=== PATIENT | female | born 1985 | race Caucasian/White ===

== ENCOUNTER 2018-06-17 17:50 | Emergency (ER) | payer OTHER ==
[~2018-06-17] VITALS: Ht 177.8 cm; Wt 62.6 kg
[2018-06-17 18:11] VITALS: BP 113/65
[2018-06-17] MEDS ORDERED: DEMEROL ONE (18:11)
[2018-06-17] MEDS ORDERED: DEMEROL IM STA (18:11)
--- NOTE | 2018-06-17 18:21 | ER.PDOC ---
General Chief Complaint: Extremities Stated Complaint: WRIST INJURY Time seen by MD: 18:10 Source: patient Exam Limitations: no limitations History of Present Illness Initial Comments Pt suffered an injury on left wrist, where the wrist went backward Occurred: just prior to arrival Where: park Severity: mild Context: direct blow Location of Injury: (L) wrist Modifying Factors: pain on movement Past Medical History LMP (females 10-50): NOVEMBER 2017 DUE TO IUD Social History Smoking: non-smoker Alcohol Use: occassionally Drug Use: none Review of Systems Constitutional: no symptoms reported EENTM: no symptoms reported Respiratory: no symptoms reported Cardiovascular: no symptoms reported Gastrointestinal: no symptoms reported Genitourinary: no symptoms reported Musculoskeletal: see HPI Skin: no symptoms reported Psychiatric/Neurological: no symptoms reported Physical Exam General Appearance: Alert, No Apparent Distress Hand: nml inspection, non-tender, no evidence FB Wrist: tenderness (left wrist), swelling (left wrist), limited ROM by pain, deformity Neuro: sensation nml, motor nml Vascular: no vascular compromise Tendons: tendon function nml Forearm/Elbow/Arm: uninjured above wrist Skin: warm/dry Head/ENT: nml inspection, pharynx nml Neck/Back: nml inspection, non-tender Resp/CVS: no resp distress, lungs clear, heart sounds nml, reg. rate & rhythm Abdomen: non-tender, no organomegaly Results/Orders Results/Orders Administered Medications Medications (Trade) Dose Ordered Sig/Kenny Route PRN Reason Start Time Stop Time Status Last Admin Dose Admin Meperidine HCl (Demerol) 50 mg STAT STAT IM 06/17/18 18:11 06/17/18 18:12 DC 06/17/18 18:16 Departure Time of Disposition: 18:50 Disposition: 01 HOME, SELF-CARE Impression: Primary Impression: Wrist fracture, left Additional Impressions: Radial fracture Ulna distal fracture Condition: Stable Patient Instructions: Wrist Fracture Referrals: PCP,UNKNOWN (PCP) PRIMARY CARE PROVIDER Duration or Time Spent with Pa: JIMMY MOREL MD Jun 17, 2018 18:21
--- NOTE | 2018-06-17 18:33 | DIREP ---
PROCEDURE:XRAY WRIST MIN 3VW-LT COMPARISON:None. INDICATIONS:Fall FINDINGS: BONES:Comminuted impacted intra articular fracture of the distal radius, with slight palmar angulation and displacement of the distal fragment. Fracture of the ulnar styloid. JOINTS:Normal. SOFT TISSUES:Normal. OTHER:No additional findings. CONCLUSION:Distal radioulnar fracture Dictated by: Manjit Be MD on 06/17/2018 at 06:31 PM
--- NOTE | 2018-06-17 19:00 | NUR ---
Sugar [facility] Place sugar tong splint on patients left arm. Patient had good pulses present and cap refill was less than 2.
--- NOTE | 2018-06-17 19:12 | NUR ---
Martin Barrera on phone with Dr. Salazar, Dr Salazar states that he will be closed on Friday
[2018-06-17 19:23] VITALS: BP 118/65
== END 2018-06-17 19:10 | disposition home or self-care (01) ==
LOC: ER 17:50
DX: S52.612A Displaced fracture of left ulna styloid process, initial encounter for closed fracture (principal); S52.572A Other intraarticular fracture of lower end of left radius, initial encounter for closed fracture; W50.0XXA Accidental hit or strike by another person, initial encounter; Y93.61 Activity, american tackle football; Y92.830 Public park as the place of occurrence of the external cause; Y99.8 Other external cause status
CPT/HCPCS: 29125; 73110; 96372; 99283; J2175

== ENCOUNTER 2018-06-19 05:21 | Emergency (ER) | payer OTHER ==
[~2018-06-19] VITALS: Ht 177.8 cm; Wt 62.6 kg
[2018-06-19] VITALS (7 sets, daily range): BP systolic 114–135; BP diastolic 65–86
--- NOTE | 2018-06-19 05:55 | NUR ---
ESPERANZA ROSS MBA ON PHONE WITH DR. MATA.
--- NOTE | 2018-06-19 06:01 | NUR ---
DR. DR. DUNLAP AT BEDSIDE.
--- NOTE | 2018-06-19 06:25 | NUR ---
DR. MATA AWAITING DR. TEJEDA ARRIVAL
[2018-06-19] MEDS ORDERED: DILAUDID IV STA (06:27)
[2018-06-19] MEDS ORDERED: DILAUDID ONE (06:27)
[2018-06-19] MEDS ORDERED: LIDOCAINE 1% VIAL ONE (06:41)
--- NOTE | 2018-06-19 06:53 | ER.PDOC ---
General Chief Complaint: Extremities Stated Complaint: ELBOW PAIN Time seen by MD: 06:46 Source: patient Exam Limitations: no limitations History of Present Illness Initial Comments Left wrist fracture 2 days ago S/P fall. Seen in the ED and wrist splinted. She returns because splint is too tight at the elbow and causing her pain. Severity: moderate Context: fall Location of Injury: (L) wrist Modifying Factors: pain on movement Past Medical History Medical History: other Surgical History: no surgical history LMP (females 10-50): HAS IUD Social History Smoking: non-smoker Alcohol Use: rarely Drug Use: none Review of Systems Constitutional: no symptoms reported EENTM: no symptoms reported Respiratory: no symptoms reported Cardiovascular: no symptoms reported Gastrointestinal: no symptoms reported Musculoskeletal: see HPI All Other Systems: Reviewed and Negative Physical Exam General Appearance: Alert, No Apparent Distress Hand: nml inspection, non-tender, no evidence FB Wrist: tenderness (left), swelling (left), limited ROM by pain, deformity Neuro: sensation nml, motor nml Vascular: no vascular compromise Tendons: tendon function nml Forearm/Elbow/Arm: uninjured above wrist Head/ENT: nml inspection, pharynx nml Neck/Back: nml inspection, non-tender Resp/CVS: no resp distress, lungs clear, heart sounds nml, reg. rate & rhythm Abdomen: non-tender, no organomegaly Results/Orders Results/Orders Administered Medications Medications (Trade) Dose Ordered Sig/Kenny Route PRN Reason Start Time Stop Time Status Last Admin Dose Admin Hydromorphone HCl (Dilaudid) 1 mg STAT STAT IV 06/19/18 06:27 06/19/18 06:28 DC 06/19/18 06:[address] Salazar who came and reduced the wrist and re-splinted it. Departure Time of Disposition: 06:49 Disposition: 01 HOME, SELF-CARE Impression: Primary Impression: Wrist fracture, left Qualified Codes: S62.102A - Fracture of unspecified carpal bone, left wrist, initial encounter for closed fracture Additional Impressions: Left radial fracture Qualified Codes: S52.592A - Other fractures of lower end of left radius, initial encounter for closed fracture Ulna distal fracture Qualified Codes: S52.692A - Other fracture of lower end of left ulna, initial encounter for closed fracture Condition: Stable Referrals: PCP,UNKNOWN (PCP) PRIMARY CARE PROVIDER Additional Instructions: F/U as instructed. Duration or Time Spent with Pa: 30 mins PATY DUNLAP MD Jun 19, 2018 06:53
--- NOTE | 2018-06-19 07:08 | NUR ---
ESPERANZA MATA AT PT BEDSIDE.
[2018-06-19] MEDS ORDERED: ZOFRAN ODT ONE (08:06)
--- NOTE | 2018-06-19 08:06 | HPH ---
ADMIT DATE: 06/19/2018 ER NOTE CHIEF COMPLAINT: Painful left wrist. HISTORY OF PRESENT ILLNESS: The patient is a 32-year-old female who injured her left wrist 2 days ago while playing football with her family. The patient is complaining of continued pain about the left wrist after being splinted 2 days ago. PHYSICAL EXAMINATION: Her exam shows that she has swelling and mild deformity about the left wrist. She has no open wounds. There are no fractures or blisters. The patient has no tenderness about the shoulder or the elbow. Her radial pulse is 2+. IMAGING STUDIES: The x-rays show that she has a dorsally angulated left distal radius fracture. ASSESSMENT: Closed displaced left distal radius fracture. PLAN: The patient was given a [place] block by myself. The fracture was reduced with traction and manipulation. The post-reduction x-rays showed satisfactory reduction of the fracture in both planes. The patient was placed in a well-fitted sugar tong splint. The patient was advised to keep the arm elevated as much as possible. She will be given an arm sling. No work on finger range of motion. They will be seen back in [place], which is where they are from next week. They have some Tylenol No. 3 for the pain. Larry Salazar MD DR: LINDA/keon JOB# [id number]
--- NOTE | 2018-06-19 08:06 | NUR ---
STATUS THIS RN TO PT BEDSIDE AT THIS TIME FOR DISCHARGE. PT STATES IS FEELING NAUSEATED. BASIN PROVIDED. PT SITTING UP IN BED. VOMITED X 1 INTO BASIN. EDP NOTIFIED.
--- NOTE | 2018-06-19 08:09 | DIREP ---
PROCEDURE:XRAY WRIST MIN 3VW-LT COMPARISON:[facility], , XRAY WRIST MIN 3VW-LT, 06/17/2018, 06:00 PM. INDICATIONS:post reduction FINDINGS: BONES:Distal radial ulna fracture with apex dorsal angulation has been reduced, now in a glass splint JOINTS:Normal. SOFT TISSUES:Normal. OTHER:No additional findings. CONCLUSION:Postreduction left wrist. Dictated by: Suzy Mccoy MD on 06/19/2018 at 08:03 AM
[2018-06-19] MEDS ORDERED: ZOFRAN ODT SL STA (08:11)
--- NOTE | 2018-06-19 08:40 | NUR ---
STATUS PT STATES IS NO LONGER NAUSEATED. FEELS BETTER AND READY TO BE DISCHARGED.
== END 2018-06-19 08:40 | disposition home or self-care (01) ==
LOC: ER 05:21
DX: S52.592A Other fractures of lower end of left radius, initial encounter for closed fracture (principal); S52.692A Other fracture of lower end of left ulna, initial encounter for closed fracture; W22.8XXA Striking against or struck by other objects, initial encounter; Y93.61 Activity, american tackle football; Y92.89 Other specified places as the place of occurrence of the external cause; Y99.8 Other external cause status
CPT/HCPCS: 25605; 73110; 96374; 99284; J2001; Q0162; 25600; 99283